=== PATIENT | male | born 1970 | race Caucasian/White ===

== ENCOUNTER 2023-04-17 16:49 | Emergency (ER) | payer OTHER ==
[~2023-04-17] VITALS: Ht 182.9 cm; Wt 129.3 kg
[2023-04-17 21:14] VITALS: RESP 14; TEMP 98.4
[2023-04-17 23:02] VITALS: BP 179/115; PULSE 112; O2SAT 99
== END 2023-04-18 02:54 | disposition home or self-care (01) ==
LOC: ER 16:49
DX: M71.21 Synovial cyst of popliteal space [Baker], right knee (principal); Z88.2 Allergy status to sulfonamides; Z88.8 Allergy status to other drugs, medicaments and biological substances
CPT/HCPCS: 93971; 99284